=== PATIENT | male | born 1950 | race Hispanic/Latino ===

== ENCOUNTER 2018-07-21 13:27 | Emergency (ER) | payer MEDICARE, MEDICAID ==
[2018-07-21 14:19] VITALS: BP 148/84; PULSE 54; RESP 14; TEMP 97.7; O2SAT 100
[2018-07-21] MEDS ORDERED: Amoxicillin-Clav 875-125 mg Tab PO STA (15:57)
[2018-07-21] MEDS ORDERED: Tdap Vaccine 0.5 ml Vial (10-64 yrs) IM ONE ×2 (15:57→16:36)
--- NOTE | 2018-07-21 16:00 | ED PDOC ---
HPI: Skin/Bite Injury Time Seen by Provider: 07/21/18 14:01 Chief Complaint (Nursing): Bite Chief Complaint (Provider): Bite History Per: Patient History/Exam Limitations: no limitations Onset/Duration Of Symptoms: Hrs (07:30 this morning) Current Symptoms Are (Timing): Still Present Location Of Injury: Right: Hand Additional Complaint(s): Martin Burns is a 68 year old male, with a past medical history of HIV, who presents to the emergency department for evaluation of a bite to his right hand and scratch to his right eyelid onset 07:30 this morning. Patient reports he was bit and scratched by his family's wallace cat. Patient states pain and swelling has worsened since onset. He initially cleaned the wound and used Silvadene ointment. Patient also reports he recently finished antibiotics last week for a surgery. He denies any fever, chills or other medical complaints. PMD: Deandre Graf - Animal Bite Description Of The Animal: Family Pet Animal Appears: Well Animal's Immunization Status: Not Recently Immunized Past Medical History Reviewed: Historical Data, Nursing Documentation, Vital Signs Vital Signs: Last Vital Signs Temp 97.7 F 07/21/18 14:13 Pulse 54 L 07/21/18 14:13 Resp 14 07/21/18 14:13 BP 148/84 07/21/18 14:13 Pulse Ox 100 07/21/18 16:07 - Medical History PMH: HIV - Family History Family History: States: Unknown Family Hx - Home Medications Home Medications: Ambulatory Orders Medication Instructions Recorded Amoxicillin/Clavulanate [Augmentin 1 tab PO BID #14 tab 07/21/18 875 MG-125 MG] Ibuprofen [Motrin] 600 mg PO Q6 #20 tab 07/21/18 - Allergies Allergies/Adverse Reactions: Allergies Allergy/AdvReac Type Severity Reaction Status Date / Time No Known Allergies Allergy Verified 07/21/18 14:13 Review of Systems ROS Statement: Except As Marked, All Systems Reviewed And Found Negative Constitutional: Negative for: Fever, Chills Eyes: Positive for: Eyelid Inflammation (right) Musculoskeletal: Positive for: Hand Pain (right) Physical Exam - Reviewed Nursing Documentation Reviewed: Yes Vital Signs Reviewed: Yes - Physical Exam Appears: Positive for: No Acute Distress Head Exam: Positive for: ATRAUMATIC, NORMAL INSPECTION, NORMOCEPHALIC Skin: Positive for: Normal Color, Warm, Dry Eye Exam: Positive for: Other (Superficial abrasion to right upper eyelid with mild edema) Neck: Positive for: Painless ROM Respiratory: Negative for: Respiratory Distress Extremity: Positive for: Normal ROM (upper and lower extremities), Swelling ( Right hand with puncture wounds over 2nd metacarpal with moderate edema and erythema). Negative for: Deformity Neurologic/Psych: Positive for: Alert, Oriented - Laboratory Results Result Diagrams: 07/21/18 16:23 07/21/18 16:23 - ECG O2 Sat by Pulse Oximetry: 100 (RA) Pulse Ox Interpretation: Normal Medical Decision Making Medical Decision Making: Time: 14:01 Initial Impression: Cat bite Initial Plan: --CMP --CBC w/ differential --Adacel 0.5 ml IM --Augmentin 1 tab PO --Hand right 3 views [RAD] --Reevaluation Scribe Attestation: Documented by Randall Portillo, acting as a scribe for Davida Gupta PA-C Provider Scribe Attestation: All medical record entries made by the Scribe were at my direction and personally dictated by me. I have reviewed the chart and agree that the record accurately reflects my personal performance of the history, physical exam, medical decision making, and the department course for this patient. I have also personally directed, reviewed, and agree with the discharge instructions and disposition. Disposition - Clinical Impression Clinical Impression: Cat bite - Patient ED Disposition Is Patient to be Admitted: No - Disposition Disposition: Routine/Home Disposition Time: 18:10 Condition: STABLE Prescriptions: Amoxicillin/Clavulanate [Augmentin 875 MG-125 MG] 1 tab PO BID #14 tab Ibuprofen [Motrin] 600 mg PO Q6 #20 tab Instructions: Animal and Human Bites Forms: [employer] (Danish)
[2018-07-21 16:29] LABS: BASO % 0.3 % (0.0-2.0); EOS # 0.1 K/uL (0.0-0.7); EOS % 0.8 % (0.0-4.0); HEMOGLOBIN 16.1 g/dL (12.0-18.0); LYMPH # 1.5 K/uL (1.0-4.3); LYMPH % 17.3 % (20.0-40.0); MEAN CELL VOLUME 101.5 fl (80.0-94.0); MEAN CORPUSCULAR HGB CONC 33.5 g/dL (33.0-37.0); MEAN PLATELET VOLUME 8.6 fl (7.2-11.7); MONO # 0.5 K/uL (0.0-0.8); MONO % 6.2 % (0.0-10.0); NEUT # 6.4 K/uL (1.8-7.0); NEUT % 75.4 % (50.0-75.0); RBC 4.73 Mil/uL (4.40-5.90); RED CELL DISTRIBUTION WIDTH 13.8 % (11.5-14.5); WHITE BLOOD COUNT 8.5 K/uL (4.8-10.8)
[2018-07-21] MEDS ORDERED: Amoxicillin-Clav 875-125 mg Tab PO ONE (16:36)
[2018-07-21] MEDS ORDERED: Oxycodone/Acetaminophen 5/325 mg Tab PO STA (16:36)
[2018-07-21 16:43] LABS: ALB/GLOB RATIO 1.6 (1.0-2.1); ALBUMIN 4.7 g/dL (3.5-5.0); ALT/SGPT 33 U/L (21-72); AST/SGOT 30 U/L (17-59); BLOOD UREA NITROGEN 14 mg/dl (9-20); GFR NON-AFRICAN AMERICAN > 60
--- NOTE | 2018-07-21 17:45 | RAD ---
PROCEDURE: Right Hand Radiographs. HISTORY: cat bite COMPARISON: No prior study available for comparison however correlation made with radiographs of the left hand 04/22/2011. FINDINGS: BONES: No evidence of acute displaced fracture nor dislocation. The osseous structures appear intact. No obvious cortical destructive changes. JOINTS: Normal. No osteoarthritic changes. SOFT TISSUES: Soft tissues appear grossly unremarkable without evidence of subcutaneous air foreign body OTHER FINDINGS: None. IMPRESSION: No evidence of acute displaced fracture nor dislocation.
== END 2018-07-21 16:56 | disposition home or self-care (01) ==
LOC: H.ER 13:27
DX: S61.451A Open bite of right hand, initial encounter (principal); W55.01XA Bitten by cat, initial encounter; Z23 Encounter for immunization

== ENCOUNTER 2019-01-11 16:29 | Inpatient (IN) | payer MEDICARE, MEDICAID ==
[2019-01-11] MEDS: Sodium Chloride 0.9% 1,000 ML IV SCH (17:00)
--- NOTE | 2019-01-11 17:13 | CT ---
Date of service: 01/11/2019 PROCEDURE: CT HEAD WITHOUT CONTRAST. HISTORY: code stroke COMPARISON: None available. TECHNIQUE: Axial computed tomography images were obtained through the head/brain without intravenous contrast. Supplemental Coronal and Sagittal projections created and reviewed. Radiation dose: Total exam DLP = not provided. MGy-cm. This CT exam was performed using one or more of the following dose reduction techniques: Automated exposure control, adjustment of the mA and/or kV according to patient size, and/or use of iterative reconstruction technique. FINDINGS: HEMORRHAGE: No intracranial hemorrhage. BRAIN: No mass effect or edema. No atrophy or chronic microvascular ischemic changes. VENTRICLES: Unremarkable. No hydrocephalus. CALVARIUM: Unremarkable. PARANASAL SINUSES: Unremarkable as visualized. No significant inflammatory changes. MASTOID AIR CELLS: Unremarkable as visualized. No inflammatory changes. OTHER FINDINGS: None. IMPRESSION: No acute intracranial abnormalities. No significant findings to account for the clinical presentation. Code stroke protocol: Study completed 16:53. Attempts to reach the referring physician at 17:06 were not successful. Interpretation finalized and available for review 17:09.
--- NOTE | 2019-01-11 17:18 | ED PDOC ---
HPI:STROKE - Time Time: 16:51 - Historian Historian: Patient - Chief Complaint Chief Complaint: Numbness - Onset Date: 01/11/19 Time: 15:30 Onset: This afternoon (x2 hours prior to arrival) - Timing Timing: Persistent - Context Context: Sitting - Location Location: None Locate right:: Face, Upper extremity, Lower extremity - TPA Positive for Contraindication: Yes Reason tPA is not being Administered: Patient declined medication - Notes: Notes:: 68 y/o male with a PMHx of HIV presents to the ED for evaluation of sudden onset of left sided weakness and paresthesias to the face and left arm. Patient repo rts of weakness to the left leg. Patient notes of having generalized weakness over the last few days. Patient reports of similar episodes of unilateral weakness two weeks ago that resolved spontaneously. Patient states he saw PMD four days ago and was given a referral for an MRI for further evaluation. At this time, patient notes of having a little trouble speaking due to numbness to the face. Otherwise, patient denies headache, nausea and blurry vision. PMD: Deandre Graf NIHSS Stroke Scale - Date/Time Evaluation Performed Date Performed: 01/11/19 Time Performed: 17:30 When Was NIHSS Performed: Code Stroke - How Severe is the Stroke Level of Consciousness: 0=Alert LOC to Questions: 0=Both comments correct LOC to commands: 0=Obeys both correctly Best Gaze: 0=Normal Visual: 0=No visual loss Facial: 0=Normal Motor Arm - Left: 0=No drift Motor Arm - Right: 0=No drift Motor Leg - Left: 1=Drift before 5 sec Motor Leg - Right: 0=No drift Limb Ataxia: 0=Absent Sensory: 1=Mild to moderate loss Best Language: 0=No aphasia Dysarthia: 1=Mild to moderate slurring Extinction & Inattention (Neglect): 0=Normal, no object Score: 3 rTPA Inclusion/Exclusion - Refusal of Treatment Patient Refused Treatment: Yes Past Medical History Reviewed: Historical Data, Nursing Documentation, Vital Signs Vital Signs: Last Vital Signs Temp 97.1 F L 01/11/19 16:38 Pulse 68 01/11/19 16:38 Resp 18 01/11/19 16:38 BP 154/91 H 01/11/19 16:38 Pulse Ox 99 01/11/19 16:38 - Medical History PMH: HIV - Surgical History Surgical History: No Surg Hx - Family History Family History: States: Unknown Family Hx - Home Medications Home Medications: Ambulatory Orders Medication Instructions Recorded ALPRAZolam [Xanax] 1 mg PO DAILY PRN 01/11/19 ALPRAZolam [Xanax] 1 mg PO HS 01/11/19 Atorvastatin [Lipitor] 10 mg PO HS 01/11/19 Elviteg/Cob/Emtri/Tenof Alafen 1 tab PO HS 01/11/19 [Genvoya Tablet] Gabapentin 800 mg PO Q12 01/11/19 Levocetirizine Dihydrochloride 5 mg PO DAILY 01/11/19 [Xyzal] QUEtiapine [Seroquel] 25 mg PO HS 01/11/19 - Allergies Allergies/Adverse Reactions: Allergies Allergy/AdvReac Type Severity Reaction Status Date / Time No Known Allergies Allergy Verified 07/21/18 14:13 Review of Systems ROS Statement: Except As Marked, All Systems Reviewed And Found Negative (and as per HPI) Eyes: Negative for: Vision Change Gastrointestinal: Negative for: Nausea Neurological: Positive for: Weakness (left sided weakness), Change in Speech (subtle), Other (paresthesias to the face and leg). Negative for: Headache Physical Exam - Reviewed Nursing Documentation Reviewed: Yes Vital Signs Reviewed: Yes - Physical Exam Appears: Positive for: Well, Non-toxic, Uncomfortable Head Exam: Positive for: ATRAUMATIC, NORMOCEPHALIC Skin: Positive for: Warm, Dry Eye Exam: Positive for: EOMI, PERRL ENT: Negative for: Pharyngeal Erythema, Tonsillar Exudate Neck: Positive for: Painless ROM, Supple Cardiovascular/Chest: Positive for: Regular Rate, Rhythm. Negative for: Murmur Respiratory: Positive for: Normal Breath Sounds. Negative for: Respiratory Distress Gastrointestinal/Abdominal: Positive for: Soft. Negative for: Tenderness Back: Positive for: Normal Inspection. Negative for: Muscle Spasm Extremity: Negative for: Pedal Edema, Deformity Lymphatic: Negative for: Adenopathy Neurologic/Psych: Positive for: Alert, Oriented, Other (4+/5 strength of left lower extremity. Otherwise 5/5 strength in other extremities. Subtle dysarthia). Negative for: Motor/Sensory Deficits, Facial Droop - Laboratory Results Result Diagrams: 01/11/19 17:30 01/11/19 17:10 - ECG O2 Sat by Pulse Oximetry: 99 (RA) Pulse Ox Interpretation: Normal - Critical Care Total Time (In Min): 30 Documented Critical Care: Time excludes all time spent performint seperately billable procedures Medical Decision Making Medical Decision Making: Time: 1647 -- Code Stroke called Overhead Time: 1650 Impression: CVA Plan: -- CT Head w/o Contrast (CODE STROKE) -- EKG -- CMP -- Hemoglobin A1C -- Lipid Panel -- Troponin I -- Stroke Team Consult -- PTT -- Prothrombin time -- CXR Portable -- Activase 10 mg Inj 5 mg IV -- Activase 10 mg Inj 48 mg IV -- Sodium Chloride 0.9% 1000 ML IV 100 mls/hr -- Seed Analyst -- Call Stroke Team Consult PRN -- ED Obtain Labs -- Glucose, Blood, POC -- Neuro Check Q15M -- Nursing Swallow Screen -- Vital Signs Q15M Time: 1700 -- Spoke to Neurologist on-call, Dr. Pollack regarding patient's condition. Dr. Pollack evaluated patient at bedside via TeleStroke Communication video call. As per Dr. Pollack, patient noted to have a NIH score of 1 due to a slight sensation deficit in the left arm. Patient given risks of TPA by Dr. Pollack. Patient declined TPA at this time. ASA and Plavix and CTA ordered as per discussion with Dr Pollack [address] Tony Hospitalist for inpatient stroke workup. Scribe Attestation: Documented by Venkat Lou, acting as a scribe for Davida Godinez MD. Provider Scribe Attestation: All medical record entries made by the Scribe were at my direction and personally dictated by me. I have reviewed the chart and agree that the record accurately reflects my personal performance of the history, physical exam, medical decision making, and the department course for this patient. I have also personally directed, reviewed, and agree with the discharge instructions and disposition. Disposition - Clinical Impression Clinical Impression: Unilateral weakness Counseled Patient/Family Regarding: Studies Performed, Diagnosis - Disposition Disposition Time: 18:00 Condition: FAIR - Pt Status Changed To: Hospital Disposition Of: Observation - POA Present On Arrival: None
[2019-01-11] MEDS ORDERED: Sodium Chloride 0.9% 50 ML IV ONE (17:24)
[2019-01-11] MEDS ORDERED: Iodixanol 320 MG/ML 100 ML BOTTLE IV ONE (17:24)
[2019-01-11 17:32] LABS: BASO % 0.5 % (0.0-2.0); EOS # 0.1 K/uL (0.0-0.7); EOS % 1.7 % (0.0-4.0); LYMPH # 1.5 K/uL (1.0-4.3); LYMPH % 27.6 % (20.0-40.0); MEAN CELL VOLUME 102.1 fl (80.0-94.0); MEAN CORPUSCULAR HEMOGLOBIN 34.2 pg (27.0-31.0); MEAN CORPUSCULAR HGB CONC 33.5 g/dL (33.0-37.0); MONO # 0.5 K/uL (0.0-0.8); MONO % 9.3 % (0.0-10.0); NEUT # 3.3 K/uL (1.8-7.0); NEUT % 60.9 % (50.0-75.0); RBC 4.09 Mil/uL (4.40-5.90); RED CELL DISTRIBUTION WIDTH 14.1 % (11.5-14.5); WHITE BLOOD COUNT 5.5 K/uL (4.8-10.8)
--- NOTE | 2019-01-11 17:53 | PCM.TLSTRK ---
TeleStroke Consultation - Consultation This telehealth visit and patient is being seen on: 01/11/19 The teleneurologist and local physician agreed that telephone exchange of information was sufficient for this consultation and did not require video examination at this time.: No Telehealth services using bi-directional audio/video at [employer] [facility]: [facility] Active/open-ended communication was used to verify the patient's full name, and date of with: Patient - History of Present Illness Chief/Complaint/History of Present of Illness: The patient is a 68 year-old M with a past medical history of HIV and HTN, who developed left side sensory changes and some weakness at around 3:30 PM today. He states that his left side has been feeling strange for about a week now. Last known well date: 01/11/19 Last known well time: 15:30 Patient is a candidate for thrombolytic therapy: Yes - Imaging CT Head: Obtained, Reviewed CT Head show: No acute changes. - tPA The patient &/or family is aware of the benefits & risks of tPA treatment,including a risk of symptomatic ICH & . The patient &/or family is aware of other treatment options including for no treatment: Yes TeleStroke Patient History - Past Family History Pertinent Family History: Problem Relation Age of Onset - Past Social History Smoking Status: Never Smoked - HEMATOLOGICAL/ONCOLOGICAL Hx Human Immunodeficiency Virus (HIV): Yes - PSYCHIATRIC Hx Substance Use: No Meds Allergies/Adverse Reactions: Allergies Allergy/AdvReac Type Severity Reaction Status Date / Time No Known Allergies Allergy Verified 07/21/18 14:13 - Medications Medications: Current Medications Sodium Chloride (Sodium Chloride 0.9%) 1,000 mls @ 100 mls/hr IV .Q10H COUNT INCLUDES THE [facility] Review of Systems - Review of Systems All systems: reviewed and no additional remarkable complaints except NIHSS Stroke Scale - Date/Time Evaluation Performed Date Performed: 01/11/19 Time Performed: 16:55 When Was NIHSS Performed: Baseline - How Severe is the Stroke Level of Consciousness: 0=Alert LOC to Questions: 0=Both comments correct LOC to commands: 0=Obeys both correctly Best Gaze: 0=Normal Visual: 0=No visual loss Facial: 0=Normal Motor Arm - Left: 0=No drift Motor Arm - Right: 0=No drift Motor Leg - Left: 0=No drift Motor Leg - Right: 0=No drift Limb Ataxia: 0=Absent Sensory: 1=Mild to moderate loss Best Language: 0=No aphasia Dysarthia: 0=Normal articulation Extinction & Inattention (Neglect): 0=Normal, no object Score: 1 TeleStroke Exam - General Medical Examination Vital Signs (last 24 hours): Vital Signs - 24 hr 01/11/19 01/11/19 16:38 17:18 Temperature 97.1 F L Pulse Rate 68 Respiratory 18 Rate Blood Pressure 154/91 H O2 Sat by Pulse 99 99 Oximetry Weight in kilograms: 59.323525 - Neurological Examination Mental Status: Positive for: Fully Alert Cranial Nerves: Positive for: Visual cagle were full to confrontation, Version were full without, No dysarthia was appreciated Motor: Positive for: No pronator drift, Power was grossly full throughout Sensory: Positive for: Pin, temperature, vibration, and position sense was full and symmetric, Romberg Coordination: Positive for: No ataxia with finger to nose or heel to mejias testing TeleStroke Plan - Review Patient's current medication list, allergies and medical problems were verified by the following method: Facility medical record, Discussion with the patient/patient representative phlebotomy services I have reviewed all pertinent labs: Yes - Impression Impression: This is a 68-year-old man who presented with left side weakness and sensory changes that improved. His current NIHSS is 1 and he refused IV tPA. - IV-tPA Administration Patient is a candidate for thrombolytic therapy: Yes If not a candidate for thrombolytic,contraindication include: Refused tPA tPA total dose in mg (MAX: 90 mg): [id number] Initiate post-TPA pathway: No Plan: 1. Telemetry, obtain CTA of the head/neck 2. MRI brain without contrast 3. Echocardiogram 4. Load with Plavix 300 mg and aspirin 81 mg. Continue Plavix 75 mg tomorrow and aspirin 81 mg. 5. Fluids with NS at 100 mL/hr 6. Permissive HTN (Only treat BP that is higher than 220/110 mm Hg for the next 24 hours) 7. Check Lipid Panel, HbA1c, B12, folate, TSH, T3/4, and vitamin D levels 9. PT/OT eval and treatment 10. Case management consult. TeleStroke Disposition - Communication Case discussed with: ED Physician - Call Call Start Date: 01/11/19 Phone Call Start Time: 16:50 Call End Date: 01/11/19 - Video Video Start Date: 01/11/19 Video Start Time: 16:55 - Evaluation Total Evaluation Time Spent (minutes): 25
[2019-01-11 17:57] LABS: PARTIAL THROMBOPLASTIN TIME 36.3 Seconds (25.6-37.1)
[2019-01-11 18:03] LABS: ALB/GLOB RATIO 1.4 (1.0-2.1); BLOOD UREA NITROGEN 18 mg/dl (9-20); CALCIUM 10.1 mg/dL (8.4-10.2); GFR NON-AFRICAN AMERICAN > 60; HDL CHOLESTEROL 71 MG/DL (30-70)
[2019-01-11 18:14] LABS: LDL CHOLESTEROL 81 mg/dL (0-129)
[2019-01-11 18:21] LABS: PROTHROMBIN TIME 11.1 Seconds (9.8-13.1)
[2019-01-11 18:23] LABS: ALT/SGPT 40 U/L (21-72); AST/SGOT 56 U/L (17-59)
--- NOTE | 2019-01-11 19:23 | CP.PCM.HP ---
<Jeanette Erickson - Last Filed: 01/11/19 20:18> History of Present Illness - History of Present Illness History of Present Illness: Pt is a 68 y/o male with hx of HIV, HLD, Depression, Generalized Anxiety disorder, LVH, neuropathy, PAD, Anal Squamous Intraepithilial lesions (HSIL) presenting to ED with new onset left sided weakness and numbness/tingling in his left jaw and left upper and lower extremity that started at 3pm. States for the past 3 weeks he has experienced intermittent "dizziness" (denies room spinning, describes as lightheadedness) and not been feeling himself. Also notes he occasionally has felt his left side "giving out" and blurry vision in his left eye as well. He visited his PCP, Dr. Hanna, 4 days ago and was sent to get a Brain MRI w/ and w/o contrast which was scheduled for 01/14. He denies any head trauma, loc, headache, slurred speech, chest pain, sob, or recent illness. PMD: Surjit Hurt HIV (diagnosed 30 years ago, currently on Genvoya and undetectable viral load, CD4 543 [12/08/18], Anal Squamous Intraepithilial lesions (HSIL), Depression, Generalized Anxiety, HLD, Neuropathy (idiopathic) SurgHx: Anal Canal Excision Medication; Alprazolam, Seroquel, LIpitor, Gencoya, Gabapentin, Jess Allergies: Efaverenz-- [employer] symptoms FmHx: Father- heart disease, DM Social Hx: Lives alone, denies ever smoking, drinks alcohol socially, denies illicit drug use including IV injection Present on Admission - Present on Admission Any Indicators Present on Admission: No Past Patient History - Past Social History Smoking Status: Never Smoked - HEMATOLOGICAL/ONCOLOGICAL Hx Human Immunodeficiency Virus (HIV): Yes - PSYCHIATRIC Hx Substance Use: No Meds Allergies/Adverse Reactions: Allergies Allergy/AdvReac Type Severity Reaction Status Date / Time No Known Allergies Allergy Verified 07/21/18 14:13 Physical Exam - Constitutional Appears: Non-toxic, No Acute Distress - Head Exam Head Exam: ATRAUMATIC, NORMAL INSPECTION - Eye Exam Eye Exam: absent: Nystagmus Pupil Exam: PERRL. absent: Miosis - ENT Exam ENT Exam: Mucous Membranes Moist - Neck Exam Neck exam: Positive for: Full Rom - Respiratory Exam Respiratory Exam: Clear to Auscultation Bilateral. absent: Rales, Wheezes - Cardiovascular Exam Cardiovascular Exam: REGULAR RHYTHM, +S1, +S2. absent: Systolic Murmur - GI/Abdominal Exam GI & Abdominal Exam: Normal Bowel Sounds, Soft. absent: Tenderness - Extremities Exam Extremities exam: Positive for: normal capillary refill, normal inspection, pedal pulses present. Negative for: pedal edema - Neurological Exam Neurological exam: Alert, CN II-XII Intact, Motor Sensory Deficit (Left lower extremity strength diminished with pronator drift. Remainder of extremities +5/5 in strength. Nubness noted in dorsum of hand and 2-4th digits.), Oriented x3 - Psychiatric Exam Psychiatric exam: Anxious, Normal Affect - Skin Skin Exam: Normal Color Results - Vital Signs Recent Vital Signs: Last Vital Signs Temp 97.1 F L 01/11/19 16:38 Pulse 68 01/11/19 16:38 Resp 18 01/11/19 16:38 BP 154/91 H 01/11/19 16:38 Pulse Ox 99 01/11/19 19:04 - Labs Result Diagrams: 01/11/19 17:30 01/11/19 17:10 Labs: Laboratory Results - last 24 hr 01/11/19 01/11/19 01/11/19 17:10 17:10 17:30 WBC 5.5 RBC 4.09 L Hgb 14.0 D Hct 41.8 MCV 102.1 H MCH 34.2 H MCHC 33.5 RDW 14.1 Plt Count 151 MPV 9.0 Neut % (Auto) 60.9 Lymph % (Auto) 27.6 Horry % (Auto) 9.3 Eos % (Auto) 1.7 Baso % (Auto) 0.5 Neut # (Auto) 3.3 Lymph # (Auto) 1.5 H[place] # (Auto) 0.5 Eos # (Auto) 0.1 Baso # (Auto) 0.0 PT 11.1 INR 1.0 APTT 36.3 Sodium 139 Potassium 4.6 Chloride 100 Carbon Dioxide 31 H Anion Gap 13 BUN 18 Creatinine 0.9 Est GFR ( Amer) > 60 Est GFR (Non-Af Amer) > 60 Random Glucose 104 Calcium 10.1 Total Bilirubin 0.4 AST 56 ALT 40 Alkaline Phosphatase 64 Troponin I < 0.0120 Total Protein 6.9 Albumin 4.0 Globulin 2.9 Albumin/Globulin Ratio 1.4 Triglycerides 106 Cholesterol 177 LDL Cholesterol Direct 81 HDL Cholesterol 71 H Blood Type Antibody Screen BBK History Checked 01/11/19 17:49 WBC RBC Hgb Hct MCV MCH MCHC RDW Plt Count MPV Neut % (Auto) Lymph % (Auto) H[place] % (Auto) Eos % (Auto) Baso % (Auto) Neut # (Auto) Lymph # (Auto) H[place] # (Auto) Eos # (Auto) Baso # (Auto) PT INR APTT Sodium Potassium Chloride Carbon Dioxide Anion Gap BUN Creatinine Est GFR ( Amer) Est GFR (Non-Af Amer) Random Glucose Calcium Total Bilirubin AST ALT Alkaline Phosphatase Troponin I Total Protein Albumin Globulin Albumin/Globulin Ratio Triglycerides Cholesterol LDL Cholesterol Direct HDL Cholesterol Blood Type O NEGATIVE Antibody Screen Negative BBK History Checked No verified bt Assessment & Plan - Assessment and Plan (Free Text) Assessment: Pt is a 68 y/o male with hx of HIV, HLD, Depression, Generalized Anxiety disorder, LVH, neuropathy, PAD, Anal Squamous Intraepithilial lesions (HSIL) presenting to ED with new onset left sided weakness and numbness/tingling in his left jaw and left upper and lower extremity that started at 3pm. Code Stroke called in ED, neurology consulted, pt declined TPA. ED Course T 97.1, BP 154/91, HR 68, O2 sat 99 on rm air CBC wnl (MCV 102), Coagulation wnl, CMP wnl Troponin x1 negative EKG NSR, no ischemic changes Head CT (stat)- No acute intracranial abnormalities S/P ASA 81 and Plavix 300mg Nurse Swallow Screen Pass #Unilateral weakness, numbness - Strong suspicion for acute CVA - NIHHS 1-2 on exam - Telestroke Consultation (Dr. Pollack) Pt declined TPA, will follow further neurology recommendations - S/P ASA 81 and Plavix 300mg in ED - Will c/w ASA 81 and Plavix 75mg tomorrow - Head & Neck CT Angio - Echo - Brain MRI w/o contrast - NS at 100cc - Permissive HTN - Labs: Lipid panel, Hga1c, Vit B12, TSH,T4, T3, Vit D - Permissive HTN (Only treat BP that is higher than 220/110 mm Hg for the next 24 hours) - Telemetry - PT/OT #HIV - Diagnosed 30 years ago, currently on Genvoya and undetectable viral load, CD4 543 [12/08/18] - C/W Genvoya - Dr. Hanna made aware #HLD - C/W Lipitor - F/U lipid panel #Idiopathic Neuropathy -C/W Gabapentin 800 mg daily #Generalized Anxiety disorder - Mild anxiety noted in ED - Will continue with Xanax 1mg po HS #Depression - Denies active depression, SI/HI - Will c/w Seroquel antony Diet -Cardiac DVT ppx -Lovenox 40SC daily -SCD prn Telemetry Full Code Discussed case with Dr. Chavo Erickson, PGY2 <Nuvia Tony - Last Filed: 01/12/19 10:42> Results - Vital Signs Recent Vital Signs: Last Vital Signs Temp 98.2 F 01/12/19 07:49 Pulse 59 L 01/12/19 07:49 Resp 18 01/12/19 07:49 BP 121/68 01/12/19 07:49 Pulse Ox 97 01/12/19 07:49 - Labs Result Diagrams: 01/11/19 17:30 01/11/19 17:10 Labs: Laboratory Results - last 24 hr 01/11/19 01/11/19 01/11/19 16:50 17:10 17:10 WBC RBC Hgb Hct MCV MCH MCHC RDW Plt Count MPV Neut % (Auto) Lymph % (Auto) [place] % (Auto) Eos % (Auto) Baso % (Auto) Neut # (Auto) Lymph # (Auto) [place] # (Auto) Eos # (Auto) Baso # (Auto) PT 11.1 INR 1.0 APTT 36.3 Sodium 139 Potassium 4.6 Chloride 100 Carbon Dioxide 31 H Anion Gap 13 BUN 18 Creatinine 0.9 Est GFR ( Amer) > 60 Est GFR (Non-Af Amer) > 60 POC Glucose (mg/dL) 118 H Random Glucose 104 Hemoglobin A1c Calcium 10.1 Total Bilirubin 0.4 AST 56 ALT 40 Alkaline Phosphatase 64 Troponin I < 0.0120 Total Protein 6.9 Albumin 4.0 Globulin 2.9 Albumin/Globulin Ratio 1.4 Triglycerides 106 Cholesterol 177 LDL Cholesterol Direct 81 HDL Cholesterol 71 H Vitamin B12 Thyroxine (T4) Total T3 TSH 3rd Generation Blood Type Antibody Screen BBK History Checked 01/11/19 01/11/19 01/11/19 17:19 17:30 17:49 WBC 5.5 RBC 4.09 L Hgb 14.0 D Hct 41.8 MCV 102.1 H MCH 34.2 H MCHC 33.5 RDW 14.1 Plt Count 151 MPV 9.0 Neut % (Auto) 60.9 Lymph % (Auto) 27.6 [place] % (Auto) 9.3 Eos % (Auto) 1.7 Baso % (Auto) 0.5 Neut # (Auto) 3.3 Lymph # (Auto) 1.5 [place] # (Auto) 0.5 Eos # (Auto) 0.1 Baso # (Auto) 0.0 PT INR APTT Sodium Potassium Chloride Carbon Dioxide Anion Gap BUN Creatinine Est GFR ( Amer) Est GFR (Non-Af Amer) POC Glucose (mg/dL) Random Glucose Hemoglobin A1c 5.7 Calcium Total Bilirubin AST ALT Alkaline Phosphatase Troponin I Total Protein Albumin Globulin Albumin/Globulin Ratio Triglycerides Cholesterol LDL Cholesterol Direct HDL Cholesterol Vitamin B12 Thyroxine (T4) Total T3 TSH 3rd Generation Blood Type O NEGATIVE Antibody Screen Negative BBK History Checked No verified bt 01/12/19 04:30 WBC RBC Hgb Hct MCV MCH MCHC RDW Plt Count MPV Neut % (Auto) Lymph % (Auto) [place] % (Auto) Eos % (Auto) Baso % (Auto) Neut # (Auto) Lymph # (Auto) [place] # (Auto) Eos # (Auto) Baso # (Auto) PT INR APTT Sodium Potassium Chloride Carbon Dioxide Anion Gap BUN Creatinine Est GFR ( Amer) Est GFR (Non-Af Amer) POC Glucose (mg/dL) Random Glucose Hemoglobin A1c Calcium Total Bilirubin AST ALT Alkaline Phosphatase Troponin I Total Protein Albumin Globulin Albumin/Globulin Ratio Triglycerides Cholesterol LDL Cholesterol Direct HDL Cholesterol Vitamin B12 441 Thyroxine (T4) 6.41 Total T3 1.02 L TSH 3rd Generation 1.22 Blood Type Antibody Screen BBK History Checked Attending/Attestation - Attestation I have personally seen and examined this patient.: Yes I have fully participated in the care of the patient.: Yes I have reviewed all pertinent clinical information: Yes Notes (Text): 01/12/19 10:42 agree with findings and plan as above
[2019-01-11] MEDS ORDERED: Patient's Own Med (Elviteg/Cob/Emtri/Tenof Alafen [Genvoya Tablet] 1 TAB) PO SCH (22:00)
[2019-01-11 22:33] VITALS: RESP 18
[2019-01-12] MEDS: Sodium Chloride 0.9% 1,000 ML IV SCH (05:59)
[2019-01-12 06:27] LABS: T3 1.02 nmol/L (1.49-2.60)
[2019-01-12] MEDS ORDERED: Enoxaparin 40 mg Syringe SC SCH (09:00)
--- NOTE | 2019-01-12 10:53 | RAD ---
Date of service: 01/11/2019 HISTORY: Code Stroke COMPARISON: Chest radiographs 01/24/2012. FINDINGS: LUNGS: No active pulmonary disease. PLEURA: No significant pleural effusion identified, no pneumothorax apparent. CARDIOVASCULAR: No aortic atherosclerotic calcification present. Normal cardiac size. No pulmonary vascular congestion. OSSEOUS STRUCTURES: No significant abnormalities. VISUALIZED UPPER ABDOMEN: Normal. OTHER FINDINGS: None. IMPRESSION: No interval acute cardiopulmonary disease appreciated.
--- NOTE | 2019-01-12 11:11 | CP.PCM.PN ---
<William Rios - Last Filed: 01/12/19 11:22> Subjective - Date & Time of Evaluation Date of Evaluation: 01/12/19 Time of Evaluation: 10:00 - Subjective Subjective: Pt is a 68 y/o male with hx of HIV, HLD, Depression, Generalized Anxiety disorder, LVH, neuropathy, PAD, Anal Squamous Intraepithilial lesions (HSIL) admitted for left sided weakness, tingling in L UE, LE and face. Patient seen and evaluated at bedside in AM. Patient reports mild improvement in left sided weakness but continues to have facial pain/tingling and LUE tingling. Patient was able to walk to bathroom w/o any difficulty. Patient able to tolerate diet well W/O nausea, vomiting. Continues to have intermittent headache. Denies any dizziness, CP, SOB, worsening vision or any new symptoms. Patient has genvoya at home. Will call his sister to bring medication so Genvoya can be restarted. Objective - Vital Signs/Intake and Output Vital Signs (last 24 hours): Temp Pulse Resp BP Pulse Ox 98.2 F 59 L 18 121/68 97 01/12/19 07:49 01/12/19 07:49 01/12/19 07:49 01/12/19 07:49 01/12/19 07:49 - Medications Medications: Current Medications Acetaminophen (Tylenol 325mg Tab) 650 mg PO Q6 PRN PRN Reason: Pain, Mild (1-3) Alprazolam (Xanax) 1 mg PO HS [facility] Last Admin: 01/11/19 23:04 Dose: 1 mg Aspirin (Ecotrin) 81 mg PO DAILY [facility] Last Admin: 01/12/19 09:29 Dose: 81 mg Atorvastatin Calcium (Lipitor) 10 mg PO HS [facility] Last Admin: 01/11/19 23:02 Dose: 10 mg Clopidogrel Bisulfate (Plavix) 75 mg PO DAILY [facility] Last Admin: 01/12/19 09:30 Dose: 75 mg Enoxaparin Sodium (Lovenox) 40 mg SC DAILY [facility]; Protocol Last Admin: 01/12/19 09:29 Dose: 40 mg Gabapentin (Neurontin) 800 mg PO Q12H [facility] Last Admin: 01/12/19 09:29 Dose: 800 mg Home Med (Elviteg/Cob/Emtri/Tenof Alafen [Genvoya Tablet]) 1 tab PO HS [facility] Sodium Chloride (Sodium Chloride 0.9%) 1,000 mls @ 100 mls/hr IV .Q10H [facility] Last Admin: 01/12/19 05:59 Dose: 100 mls/hr Quetiapine Fumarate (Seroquel) 25 mg PO HS [facility] Last Admin: 01/11/19 23:02 Dose: 25 mg - Labs Labs: 01/11/19 17:30 01/11/19 17:10 PT 11.1 Seconds (9.8-13.1) 01/11/19 17:10 INR 1.0 01/11/19 17:10 APTT 36.3 Seconds (25.6-37.1) 01/11/19 17:10 - Constitutional Appears: Well, No Acute Distress - Head Exam Head Exam: ATRAUMATIC, NORMAL INSPECTION, NORMOCEPHALIC - Eye Exam Eye Exam: EOMI, PERRL. absent: Nystagmus Pupil Exam: absent: Miosis, Mydriatic - ENT Exam ENT Exam: Mucous Membranes Moist - Neck Exam Neck Exam: Full ROM. absent: Tenderness - Respiratory Exam Respiratory Exam: Clear to Ausculation Bilateral, NORMAL BREATHING PATTERN. absent: Rales, Rhonchi, Wheezes, Respiratory Distress - Cardiovascular Exam Cardiovascular Exam: REGULAR RHYTHM, +S1, +S2. absent: Murmur - GI/Abdominal Exam GI & Abdominal Exam: Soft, Normal Bowel Sounds. absent: Distended, Tenderness - Extremities Exam Extremities Exam: absent: Calf Tenderness, Pedal Edema, Tenderness - Neurological Exam Neurological Exam: Alert, Awake, CN II-XII Intact, Normal Gait, Oriented x3 Neuro motor strength exam: Left Upper Extremity: 5, Right Upper Extremity: 5, Left Lower Extremity: 5, Right Lower Extremity: 5 - Psychiatric Exam Psychiatric exam: Normal Affect, Normal Mood - Skin Skin Exam: Dry, Intact, Normal Color, Warm Assessment and Plan - Assessment and Plan (Free Text) Assessment: Pt is a 68 y/o male with hx of HIV, HLD, Depression, Generalized Anxiety disorder, LVH, neuropathy, PAD, Anal Squamous Intraepithilial lesions (HSIL) presenting to ED with new onset left sided weakness and numbness/tingling in his left jaw and left upper and lower extremity that started at 3pm. Code Stroke called in ED, neurology consulted, pt declined TPA. ED Course T 97.1, BP 154/91, HR 68, O2 sat 99 on rm air CBC wnl (MCV 102), Coagulation wnl, CMP wnl Troponin x1 negative EKG NSR, no ischemic changes S/P ASA 81 and Plavix 300mg Nurse Swallow Screen Pass - CTA Head/Neck: No occlusion or significant stenosis appreciated in CT angiography of the head and neck. No arteriovascular malformation or aneurysm identified. [id number] atherosclerosis appreciate the bilateral carotid bulb regions, right greater than left with minimal atherosclerosis identified partially calcified at the bilateral cavernous ICA segments. - CT Head: No acute intracranial abnormalities. No significant findings to account for the clinical presentation. - CXR: unremarkable - Echocardiogram: Awaiting official read Plan: Unilateral weakness, numbness - NIHHS 1-2 on exam - Telestroke Consultation (Dr. Pollack) Pt declined TPA, will follow further neurology recommendations - Head CT, CXR, unremarkable, Head/Neck CTA mild to moderate stenosis, R > L - Permissive HTN(Only treat BP that is higher than 220/110 mm Hg for the next 24 hours) - Continue ASA 81 and Plavix 300mg in ED - Continue NS at 100cc - Lipid panel WNL, Hga1c 5.7, Vit B12 441, TSH 1.22,T4 6.41, T3 1.02 - PT/OT eval adn treatment - F/U Echo report - F/U Brain MRI w/o contrast HIV - Diagnosed 30 years ago, currently on Genvoya and undetectable viral load, CD4 543 [12/08/18] - C/W Genvoya - Dr. Hanna made aware HLD - C/W Lipitor - F/U lipid panel Idiopathic Neuropathy -C/W Gabapentin 800 mg daily Generalized Anxiety disorder - Mild anxiety noted in ED - Will continue with Xanax 1mg po HS Depression - Denies active depression, SI/HI - Will c/w Seroquel antony Diet -Cardiac DVT ppx -Lovenox 40SC daily -SCD prn Telemetry Full Code <Nuvia Tony - Last Filed: 01/13/19 17:39> Objective - Vital Signs/Intake and Output Vital Signs (last 24 hours): Temp Pulse Resp BP Pulse Ox 98.0 F 60 18 144/71 100 01/12/19 16:05 01/12/19 16:05 01/12/19 16:05 01/12/19 16:05 01/12/19 16:05 - Labs Labs: 01/11/19 17:30 01/11/19 17:10 PT 11.1 Seconds (9.8-13.1) 01/11/19 17:10 INR 1.0 01/11/19 17:10 APTT 36.3 Seconds (25.6-37.1) 01/11/19 17:10 Attending/Attestation - Attestation I have personally seen and examined this patient.: Yes I have fully participated in the care of the patient.: Yes I have reviewed all pertinent clinical information, including history, physical exam and plan: Yes Notes (Text): 01/13/19 17:39 Agree with findings and plan as above.
--- NOTE | 2019-01-12 11:15 | CT ---
Date of service: 01/11/2019 PROCEDURE: CT Angiography of the Brain and Neck. HISTORY: LEFT sided weakness COMPARISON: None available. TECHNIQUE: CT angiography of the head and neck was performed following intravenous contrast administration. Coronal and sagittal maximum intensity projection reformatted images were generated. Contrast Dose: Visipaque 320, 90 cc Radiation dose: Total exam DLP = 433.34 mGy-cm. This CT exam was performed using one or more of the following dose reduction techniques: Automated exposure control, adjustment of the mA and/or kV according to patient size, and/or use of iterative reconstruction technique. FINDINGS: INTERNAL CEREBRAL ARTERIES: Note is made of minimally calcified atherosclerosis of the bilateral cavernous internal carotid artery segments without significant stenosis. The skull base, petrous, and supraclinoid segments are bilaterally widely patent. ANTERIOR CEREBRAL ARTERIES: Unremarkable. A1 and A2 segments are widely patent. Smaller distal branches unremarkable, as visualized. MIDDLE CEREBRAL ARTERIES: Unremarkable. M1 and M2 segments are widely patent. Perisylvian branches grossly symmetric. POSTERIOR CIRCULATION: Basilar Artery: Unremarkable. Distal Vertebral Arteries: Left dominant vertebrobasilar circulation is identified due to mild to moderate hypoplasia of the distal right vertebral artery. Posterior Cerebral Arteries: Unremarkable. Posterior Inferior Cerebellar Arteries: Unremarkable. NECK CTA: Common Carotid arteries: The bilateral common carotid appear widely patent from their origins to their bifurcations with no significant stenosis appreciated. No evidence to suggest common carotid artery dissection. Atherosclerotic plaques identified at the right greater than left carotid bulb regions on a [id number] basis bilaterally Internal Carotid arteries: No significant stenosis is appreciated throughout the cervical internal carotid artery segments bilaterally and there is no evidence of dissection either. External Carotid arteries: Appear unremarkable bilaterally. Vertebral arteries: The bilateral vertebral arteries appear normal in caliber from their origins to their distal cervical segments. No significant stenosis or definite pattern of dissection. ANEURYSM/ VASCULAR MALFORMATIONS: None. OTHER FINDINGS: Multilevel degenerative cervical spondylosis. IMPRESSION: No occlusion or significant stenosis appreciated in CT angiography of the head and neck. No arteriovascular malformation or aneurysm identified. [id number] atherosclerosis appreciate the bilateral carotid bulb regions, right greater than left with minimal atherosclerosis identified partially calcified at the bilateral cavernous ICA segments. Concordant preliminary report from [facility], 12/22/2018, 7:52 p.m..
--- NOTE | 2019-01-12 13:38 | MRI ---
Date of service: 01/12/2019 PROCEDURE: MRI BRAIN WITHOUT CONTRAST HISTORY: check for CVA COMPARISON: None available. TECHNIQUE: Multiplanar, multisequence MR images of the brain were obtained without intravenous contrast enhancement. FINDINGS: HEMORRHAGE: None DWI: No evidence of an acute or early subacute infarction. BRAIN PARENCHYMA: Good corticomedullary differentiation is seen. Proportional,, limited diffuse expansion of the ventriculosulcal and cisternal spaces is appreciated with limited white matter signal changes compatible with diffuse cerebral atrophy and chronic microangiopathy. No suspicious extra-axial fluid collection is identified and the midline brain anatomy appears grossly nonfocal as imaged. There is no mass effect throughout. VENTRICLES: Unremarkable. No hydrocephalus. CRANIUM: Unremarkable. Note is made of a left parietal scalp sebaceous cyst. ORBITS: Grossly unremarkable. PARANASAL SINUSES/MASTOIDS: Limited mucosal plantar changes scattered throughout the ethmoid air cells bilaterally. VASCULAR SYSTEM: Skull base flow voids intact. OTHER FINDINGS: None. IMPRESSION: Limited age-related neuro degenerative changes are identified primarily affecting the cerebrum. No definitive acute separate brain infarction or mass effect.
--- NOTE | 2019-01-12 15:38 | CP.PCM.PN ---
Subjective - Date & Time of Evaluation Date of Evaluation: 01/12/19 Time of Evaluation: 15:36 - Subjective Subjective: Neuro Follow-Up Note: Mr. Burns was evaluated this afternoon at bedside. He states that he is feeling good and is eager to go home. He states that his symptoms from yesterday have resolved. Admits to on and off numbness/tingling to left leg and hand but none now. He does have peripheral neuropathy which is usually well controlled with Gabapentin. He admits that his symptoms of left sided weakness, paresthesias, confusion, lightheadedness, and diaphoresis have been on and off for 3 weeks. He admits to the recent loss of his partner (13-14 months ago) and states that he gets very emotional and upset when he thinks about him. He also admits that the last episode of left sided weakness and paresthesias were associated with 2 jerky movement of his left arm and left leg. No tongue biting, LOC, urinary/bowel incontinence during this episode. He denies any h/o seizures. Currently denies h/a, dizziness, visual changes, chest pain, sob, cough, abd pain, n/v/d. Objective - Vital Signs/Intake and Output Vital Signs (last 24 hours): Temp Pulse Resp BP Pulse Ox 98.3 F 64 18 142/79 98 01/12/19 12:00 01/12/19 12:00 01/12/19 12:00 01/12/19 12:00 01/12/19 12:00 - Medications Medications: Current Medications Acetaminophen (Tylenol 325mg Tab) 650 mg PO Q6 PRN PRN Reason: Pain, Mild (1-3) Alprazolam (Xanax) 1 mg PO [facility] Last Admin: 01/11/19 23:04 Dose: 1 mg Aspirin (Ecotrin) 81 mg PO DAILY [facility] Last Admin: 01/12/19 09:29 Dose: 81 mg Atorvastatin Calcium (Lipitor) 10 mg PO [facility] Last Admin: 01/11/19 23:02 Dose: 10 mg Clopidogrel Bisulfate (Plavix) 75 mg PO DAILY [facility] Last Admin: 01/12/19 09:30 Dose: 75 mg Enoxaparin Sodium (Lovenox) 40 mg SC DAILY [facility]; Protocol Last Admin: 01/12/19 09:29 Dose: 40 mg Gabapentin (Neurontin) 800 mg PO Q12H [facility] Last Admin: 01/12/19 09:29 Dose: 800 mg Home Med (Elviteg/Cob/Emtri/Tenof Alafen [Genvoya Tablet]) 1 tab PO [facility] Sodium Chloride (Sodium Chloride 0.9%) 1,000 mls @ 100 mls/hr IV .Q10H [facility] Last Admin: 01/12/19 05:59 Dose: 100 mls/hr Quetiapine Fumarate (Seroquel) 25 mg PO [facility] Last Admin: 01/11/19 23:02 Dose: 25 mg - Labs Labs: 01/11/19 17:30 01/11/19 17:10 PT 11.1 Seconds (9.8-13.1) 01/11/19 17:10 INR 1.0 01/11/19 17:10 APTT 36.3 Seconds (25.6-37.1) 01/11/19 17:10 - Constitutional Appears: Well, Non-toxic, No Acute Distress - Head Exam Head Exam: ATRAUMATIC, NORMAL INSPECTION, NORMOCEPHALIC - Eye Exam Eye Exam: EOMI, Normal appearance, PERRL Pupil Exam: NORMAL ACCOMODATION, PERRL - ENT Exam ENT Exam: Mucous Membranes Moist - Neck Exam Neck Exam: Full ROM, Normal Inspection - Respiratory Exam Respiratory Exam: NORMAL BREATHING PATTERN - Extremities Exam Extremities Exam: Full ROM, Normal Inspection. absent: Calf Tenderness, Pedal Edema - Back Exam Back Exam: Full ROM - Neurological Exam Neurological Exam: Alert, Awake, CN II-XII Intact, Normal Gait, Oriented x3, Reflexes Normal Neuro motor strength exam: Left Upper Extremity: 5 (legal advisor 5/5), Right Upper Extremity: 5 (legal advisor 5/5), Left Lower Extremity: 5 (plantar flexion 5/5), Right Lower Extremity: 5 (plantar flexion 5/5) Additional comments: Speech clear, fluid Follows all commands No facial asymmetry. Strength equal to all extremities. + FROM Sensation intact b/l. No ataxia; no dysmetria. No jerky or abnormal movements noted. Gait observed as steady during PT. - Psychiatric Exam Psychiatric exam: Normal Affect, Normal Mood - Skin Skin Exam: Normal Color Assessment and Plan (1) Unilateral weakness Assessment & Plan: Imaging reviewed: -MRI Brain (01/11/19): Limited age-related neuro degenerative changes are identified primarily affecting the cerebrum. No definitive acute separate brain infarction or mass effect. -CTA Head and Neck (01/11/19): No occlusion or significant stenosis appreciated in CT angiography of the head and neck. No arteriovascular malformation or aneurysm identified. [id number] atherosclerosis appreciate the bilateral carotid bulb regions, right greater than left with minimal atherosclerosis identified partially calcified at the bilateral cavernous ICA segments. -CT Head (01/11/19): No acute intracranial abnormalities. No significant findings to account for the clinical presentation. -Pt is neurologically stable for d/c home. -He has an appt to f/u with his PMD, [place], next week. -It is recommended that he have an EEG as outpatient to r/o seizure. Does not have to be done inpatient. -He can have an outpatient cardiology consult, which he will speak to PMD about next week. F/u with ECHO results. -May benefit from support group as he is currently grieving the loss of his partner. His symptoms may likely be related to stress/anxiety reactions. Please reconsult prn. Thank you for allowing us to participate in this pt's care. Lisa Woods DNP, [employer] Discussed with Dr. Pollack Status: Acute NIHSS Stroke Scale - Date/Time Evaluation Performed Date Performed: 01/12/19 Time Performed: 15:36 When Was NIHSS Performed: Re-evaluation - How Severe is the Stroke Level of Consciousness: 0=Alert LOC to Questions: 0=Both comments correct LOC to commands: 0=Obeys both correctly Best Gaze: 0=Normal Visual: 0=No visual loss Facial: 0=Normal Motor Arm - Left: 0=No drift Motor Arm - Right: 0=No drift Motor Leg - Left: 0=No drift Motor Leg - Right: 0=No drift Limb Ataxia: 0=Absent Sensory: 0=Normal Best Language: 0=No aphasia Dysarthia: 0=Normal articulation Extinction & Inattention (Neglect): 0=Normal, no object Score: 0
[2019-01-12 16:06] VITALS: BP 144/71; PULSE 60; TEMP 98; O2SAT 100
--- NOTE | 2019-01-12 16:22 | CP.PCM.DIS ---
<William Rios - Last Filed: 01/12/19 16:31> Provider - Provider Date of Admission: 01/11/19 17:14 Attending physician: Nuvia Tony DO Consults: 01/11/19 16:51 Stroke Team Consult Stat Comment: Consulting Provider: Neurohospitalist Consulting Physician: NEUROHOSP Neurohospitalist for Consult: Raheem Pollack Neurohospitalist for Consult: Danica Gallardo Reason for Consult: LEFT sided weakness Time Spent in preparation of Discharge (in minutes): 30 Hospital Course - Lab Results Lab Results: Most Recent Lab Values WBC 5.5 K/uL (4.8-10.8) 01/11/19 17:30 RBC 4.09 Mil/uL (4.40-5.90) L 01/11/19 17:30 Hgb 14.0 g/dL (12.0-18.0) D 01/11/19 17:30 Hct 41.8 % (35.0-51.0) 01/11/19 17:30 MCV 102.1 fl (80.0-94.0) H 01/11/19 17:30 MCH 34.2 pg (27.0-31.0) H 01/11/19 17:30 MCHC 33.5 g/dL (33.0-37.0) 01/11/19 17:30 RDW 14.1 % (11.5-14.5) 01/11/19 17:30 Plt Count 151 K/uL (130-400) 01/11/19 17:30 MPV 9.0 fl (7.2-11.7) 01/11/19 17:30 Neut % (Auto) 60.9 % (50.0-75.0) 01/11/19 17:30 Lymph % (Auto) 27.6 % (20.0-40.0) 01/11/19 17:30 [place] % (Auto) 9.3 % (0.0-10.0) 01/11/19 17:30 Eos % (Auto) 1.7 % (0.0-4.0) 01/11/19 17:30 Baso % (Auto) 0.5 % (0.0-2.0) 01/11/19 17:30 Neut # (Auto) 3.3 K/uL (1.8-7.0) 01/11/19 17:30 Lymph # (Auto) 1.5 K/uL (1.0-4.3) 01/11/19 17:30 [place] # (Auto) 0.5 K/uL (0.0-0.8) 01/11/19 17:30 Eos # (Auto) 0.1 K/uL (0.0-0.7) 01/11/19 17:30 Baso # (Auto) 0.0 K/uL (0.0-0.2) 01/11/19 17:30 PT 11.1 Seconds (9.8-13.1) 01/11/19 17:10 INR 1.0 01/11/19 17:10 APTT 36.3 Seconds (25.6-37.1) 01/11/19 17:10 Sodium 139 mmol/l (132-148) 01/11/19 17:10 Potassium 4.6 MMOL/L (3.6-5.0) 01/11/19 17:10 Chloride 100 mmol/L (98-107) 01/11/19 17:10 Carbon Dioxide 31 mmol/L (22-30) H 01/11/19 17:10 Anion Gap 13 (10-20) 01/11/19 17:10 BUN 18 mg/dl (9-20) 01/11/19 17:10 Creatinine 0.9 mg/dl (0.8-1.5) 01/11/19 17:10 Est GFR ( Amer) > 60 01/11/19 17:10 Est GFR (Non-Af Amer) > 60 01/11/19 17:10 POC Glucose (mg/dL) 118 mg/dL (65-110) H 01/11/19 16:50 Random Glucose 104 mg/dL (75-110) 01/11/19 17:10 Hemoglobin A1c 5.7 % (4.2-6.5) 01/11/19 17:19 Calcium 10.1 mg/dL (8.4-10.2) 01/11/19 17:10 Total Bilirubin 0.4 mg/dl (0.2-1.3) 01/11/19 17:10 AST 56 U/L (17-59) 01/11/19 17:10 ALT 40 U/L (21-72) 01/11/19 17:10 Alkaline Phosphatase 64 U/L (38-126) 01/11/19 17:10 Troponin I < 0.0120 ng/mL (0.00-0.120) 01/11/19 17:10 Total Protein 6.9 G/DL (6.3-8.2) 01/11/19 17:10 Albumin 4.0 g/dL (3.5-5.0) 01/11/19 17:10 Globulin 2.9 gm/dL (2.2-3.9) 01/11/19 17:10 Albumin/Globulin Ratio 1.4 (1.0-2.1) 01/11/19 17:10 Triglycerides 106 mg/DL (0-149) 01/11/19 17:10 Cholesterol 177 mg/dL (0-199) 01/11/19 17:10 LDL Cholesterol Direct 81 mg/dL (0-129) 01/11/19 17:10 HDL Cholesterol 71 MG/DL (30-70) H 01/11/19 17:10 Vitamin B12 441 pg/mL (239-931) 01/12/19 04:30 25-OH Vitamin D Total 20.2 NG/ML (30.0-100.0) L 01/12/19 04:30 Thyroxine (T4) 6.41 ug/dl (5.5-11.0) 01/12/19 04:30 Total T3 1.02 nmol/L (1.49-2.60) L 01/12/19 04:30 TSH 3rd Generation 1.22 mIU/ML (0.46-4.68) 01/12/19 04:30 Blood Type O NEGATIVE 01/11/19 17:49 Blood Type Confirm O NEGATIVE 01/12/19 11:04 Antibody Screen Negative 01/11/19 17:49 BBK History Checked No verified bt 01/11/19 17:49 - Hospital Course Hospital Course: 68 y/o male with hx of HIV, HLD, Depression, Generalized Anxiety disorder, LVH, neuropathy, PAD, Anal Squamous Intraepithilial lesions (HSIL) presenting to ED with new onset left sided weakness and numbness/tingling in his left jaw and left upper and lower extremity that started at 3pm. Code Stroke called in ED, neurology consulted, pt declined TPA. In ED: T 97.1, BP 154/91, HR 68, O2 sat 99 on rm air. CBC wnl (MCV 102), Coagulation wnl, CMP wnl, Troponin x1 negative, EKG NSR, no ischemic changes S/P ASA 81 and Plavix 300mg. CTA Head/Neck: No occlusion or significant stenosis appreciated in CT angiography of the head and neck. CT Head: No acute intracranial abnormalities. No significant findings to account for the clinical presentation, CXR: unremarkable, Echocardiogram: EF 55-60%. MRI Brain with no acute neurological changes. Patient received home medications, ASA, plavix. Patient cleared by neurologist to D/C home and F/U with Dr. Salinas in 1 week. Neurologist also recommended EEG as outpatient to r/o seizure. He can have an outpatient cardiology consult, which he will speak to PMD about next week. F/u with ECHO results. Discharge medications ASA 81 mg po daily Atorcastatin 10 mg po daily Genvoya 1 tab PO daily Seroquel 25 mg PO HS Gabapentin 800 mg PO B12 Xyzal 5 mg PO daily Xanax 1 mg PO daily PRN Xanax 1 mg PO HS Discharge Exam - Head Exam Head Exam: ATRAUMATIC, NORMAL INSPECTION, NORMOCEPHALIC - Eye Exam Eye Exam: EOMI, Normal appearance - ENT Exam ENT Exam: Mucous Membranes Moist - Neck Exam Neck exam: Full Rom - Respiratory Exam Respiratory Exam: Clear to PA & Lateral, UNREMARKABLE. absent: Rales, Rhonchi, Wheezes, Respiratory Distress - Cardiovascular Exam Cardiovascular Exam: REGULAR RHYTHM, +S1, +S2. absent: Systolic Murmur - GI/Abdominal Exam GI & Abdominal Exam: Normal Bowel Sounds, Unremarkable. absent: Soft, Tenderness - Back Exam Back exam: absent: CVA tenderness (L) - Neurological Exam Neurological exam: Alert, CN II-XII Intact, Normal Gait, Oriented x3 - Psychiatric Exam Psychiatric exam: Normal Affect, Normal Mood - Skin Skin Exam: Dry, Intact, Normal Color, Warm Discharge Plan - Discharge Medications Prescriptions: Aspirin [Ecotrin] 81 mg PO DAILY #30 tabec - Follow Up Plan Condition: STABLE Disposition: HOME/ ROUTINE Patient education suggested?: Yes Instructions: Paresthesias (DC), Hand Numbness Additional Instructions: Follow up with Dr. Salinas on outpatient basis within 1 week Referrals: Deandre Graf MD [Family Provider] - <Nuvia Tony - Last Filed: 01/13/19 17:37> Provider - Provider Date of Admission: 01/11/19 17:14 Attending physician: Nuvia Tony DO Consults: 01/11/19 16:51 Stroke Team Consult Stat Comment: Consulting Provider: Neurohospitalist Consulting Physician: NEUROHOSP Neurohospitalist for Consult: Raheem Pollack Neurohospitalist for Consult: Danica Gallardo Reason for Consult: LEFT sided weakness Hospital Course - Lab Results Lab Results: Most Recent Lab Values WBC 5.5 K/uL (4.8-10.8) 01/11/19 17:30 RBC 4.09 Mil/uL (4.40-5.90) L 01/11/19 17:30 Hgb 14.0 g/dL (12.0-18.0) D 01/11/19 17:30 Hct 41.8 % (35.0-51.0) 01/11/19 17:30 MCV 102.1 fl (80.0-94.0) H 01/11/19 17:30 MCH 34.2 pg (27.0-31.0) H 01/11/19 17:30 MCHC 33.5 g/dL (33.0-37.0) 01/11/19 17:30 RDW 14.1 % (11.5-14.5) 01/11/19 17:30 Plt Count 151 K/uL (130-400) 01/11/19 17:30 MPV 9.0 fl (7.2-11.7) 01/11/19 17:30 Neut % (Auto) 60.9 % (50.0-75.0) 01/11/19 17:30 Lymph % (Auto) 27.6 % (20.0-40.0) 01/11/19 17:30 [place] % (Auto) 9.3 % (0.0-10.0) 01/11/19 17:30 Eos % (Auto) 1.7 % (0.0-4.0) 01/11/19 17:30 Baso % (Auto) 0.5 % (0.0-2.0) 01/11/19 17:30 Neut # (Auto) 3.3 K/uL (1.8-7.0) 01/11/19 17:30 Lymph # (Auto) 1.5 K/uL (1.0-4.3) 01/11/19 17:30 [place] # (Auto) 0.5 K/uL (0.0-0.8) 01/11/19 17:30 Eos # (Auto) 0.1 K/uL (0.0-0.7) 01/11/19 17:30 Baso # (Auto) 0.0 K/uL (0.0-0.2) 01/11/19 17:30 PT 11.1 Seconds (9.8-13.1) 01/11/19 17:10 INR 1.0 01/11/19 17:10 APTT 36.3 Seconds (25.6-37.1) 01/11/19 17:10 Sodium 139 mmol/l (132-148) 01/11/19 17:10 Potassium 4.6 MMOL/L (3.6-5.0) 01/11/19 17:10 Chloride 100 mmol/L (98-107) 01/11/19 17:10 Carbon Dioxide 31 mmol/L (22-30) H 01/11/19 17:10 Anion Gap 13 (10-20) 01/11/19 17:10 BUN 18 mg/dl (9-20) 01/11/19 17:10 Creatinine 0.9 mg/dl (0.8-1.5) 01/11/19 17:10 Est GFR ( Amer) > 60 01/11/19 17:10 Est GFR (Non-Af Amer) > 60 01/11/19 17:10 POC Glucose (mg/dL) 118 mg/dL (65-110) H 01/11/19 16:50 Random Glucose 104 mg/dL (75-110) 01/11/19 17:10 Hemoglobin A1c 5.7 % (4.2-6.5) 01/11/19 17:19 Calcium 10.1 mg/dL (8.4-10.2) 01/11/19 17:10 Total Bilirubin 0.4 mg/dl (0.2-1.3) 01/11/19 17:10 AST 56 U/L (17-59) 01/11/19 17:10 ALT 40 U/L (21-72) 01/11/19 17:10 Alkaline Phosphatase 64 U/L (38-126) 01/11/19 17:10 Troponin I < 0.0120 ng/mL (0.00-0.120) 01/11/19 17:10 Total Protein 6.9 G/DL (6.3-8.2) 01/11/19 17:10 Albumin 4.0 g/dL (3.5-5.0) 01/11/19 17:10 Globulin 2.9 gm/dL (2.2-3.9) 01/11/19 17:10 Albumin/Globulin Ratio 1.4 (1.0-2.1) 01/11/19 17:10 Triglycerides 106 mg/DL (0-149) 01/11/19 17:10 Cholesterol 177 mg/dL (0-199) 01/11/19 17:10 LDL Cholesterol Direct 81 mg/dL (0-129) 01/11/19 17:10 HDL Cholesterol 71 MG/DL (30-70) H 01/11/19 17:10 Vitamin B12 441 pg/mL (239-931) 01/12/19 04:30 25-OH Vitamin D Total 20.2 NG/ML (30.0-100.0) L 01/12/19 04:30 Thyroxine (T4) 6.41 ug/dl (5.5-11.0) 01/12/19 04:30 Total T3 1.02 nmol/L (1.49-2.60) L 01/12/19 04:30 TSH 3rd Generation 1.22 mIU/ML (0.46-4.68) 01/12/19 04:30 Blood Type O NEGATIVE 01/11/19 17:49 Blood Type Confirm O NEGATIVE 01/12/19 11:04 Antibody Screen Negative 01/11/19 17:49 BBK History Checked No verified bt 01/11/19 17:49 Attending/Attestation - Attestation I have personally seen and examined this patient.: Yes I have fully participated in the care of the patient.: Yes I have reviewed all pertinent clinical information, including history, physical exam and plan: Yes Notes (Text): 01/13/19 17:37 Agree with findings and plan as above.
--- NOTE | 2019-01-12 21:01 | CARD ---
APPROVED REPORT Date of service: 01/12/2019 EXAM: Two-dimensional and M-mode echocardiogram with Doppler and color Doppler. Other Information Quality : GoodRhythm : NSR INDICATION CVA/TIA 2D DIMENSIONS IVSd1.20 (0.7-1.1cm)LVDd4.11 (3.9-5.9cm) LVOT Diameter1.99 (1.8-2.4cm)PWd1.07 (0.7-1.1cm) IVSs1.58 (0.8-1.2cm)LVDs2.28 (2.5-4.0cm) FS (%) 44.6 %PWs1.25 (0.8-1.2cm) M-Mode DIMENSIONS Left Atrium (MM)3.81 (2.5-4.0cm)IVSd1.16 (0.7-1.1cm) Aortic Root3.53 (2.2-3.7cm)LVDd4.45 (4.0-5.6cm) Aortic Cusp Exc.2.19 (1.5-2.0cm)PWd1.08 (0.7-1.1cm) IVSs1.80 cmFS (%) 51 % LVDs2.19 (2.0-3.8cm)PWs1.52 cm Aortic Valve AoV Peak Bvyfbqse198.6cm/sAoV VTI27.1cmAO Peak GR.6mmHg LVOT Peak Lggakggw632.3cm/sLVOT VTI23.17cmAO Mean GR.3mmHg KAROLINE (VMAX)1.09ud8AAC (VTI)1.57cm2 Mitral Valve MV E Ztgzcrop04.7cm/sMV DECEL [id number] A Cymjcnud61.8cm/s MV BDO53ocE/A ratio0.9MVA (PHT)3.59cm2 TDI Lateral E' Peak V9.04cm/sMedial E' Peak V9.45cm/sE/Lateral E'6.4 E/Medial E'6.1 LEFT VENTRICLE The left ventricle is normal size. There is normal left ventricular wall thickness. The left ventricular systolic function is normal. The estimated ejection fraction is 55-60% No regional wall motion abnormalities noted.. Transmitral Doppler flow pattern is Grade I-abnormal relaxation pattern. No left ventricle thrombus noted on this study. There is no ventricular septal defect visualized. There is no left ventricular aneurysm. There is no mass noted in the left ventricle. RIGHT VENTRICLE The right ventricle is normal size. There is normal right ventricular wall thickness. The right ventricular systolic function is normal. ATRIA The left atrium size is normal. The right atrium size is normal. The interatrial septum is intact with no evidence for an atrial septal defect. AORTIC VALVE The aortic valve is normal in structure. No aortic regurgitation is present. There is no aortic valvular stenosis. There is no aortic valvular vegetation. MITRAL VALVE The mitral valve is normal in structure. There is no evidence of mitral valve prolapse. There is no mitral valve stenosis. There is mild mitral valve regurgitation noted. TRICUSPID VALVE The tricuspid valve is normal in structure. There is mild tricuspid valve regurgitation noted. RVSP is calculated at 20 mm Hg. There is no tricuspid valve prolapse or vegetation. There is no tricuspid valve stenosis. PULMONIC VALVE The pulmonary valve is normal in structure. There is no pulmonic valvular regurgitation. There is no pulmonic valvular stenosis. GREAT VESSELS The aortic root is normal in size. The ascending aorta is normal in size. The pulmonary artery is normal. The IVC is normal in size and collapses >50% with inspiration. PERICARDIAL EFFUSION There is no pericardial effusion. There is no pleural effusion. <Conclusion> The estimated ejection fraction is 55-60% Transmitral Doppler flow pattern is Grade I-abnormal relaxation pattern. There is mild mitral valve regurgitation noted. There is mild tricuspid valve regurgitation noted. RVSP is calculated at 20 mm Hg. The interatrial septum is intact with no evidence for an atrial septal defect.
--- NOTE | 2019-01-13 13:05 | PQF ---
PROVIDER RESPONSE TEXT: Patient is asymptomatic HIV REVIEWER QUERY TEXT: HIV Clarification and Associated Conditions HIV (Human immunodeficiency virus) is documented in the medical record. Please specify the type Such as: -- Symptomatic -- Asymptomatic -- Other, please specify 01/12 [facility] Resident note includes:HIV - Diagnosed 30 years ago, currently on Genvoya and undetectab le viral load, CD4 543 [12/08/18] - C/W Genvoya - Dr. Hanna made aware The patient's Clinical Indicators include: --- Query created by: Lisy Shelton on 01/12/2019 1:55 PM Electronically signed by: William Rios 01/13/2019 1:02 PM
--- NOTE | 2019-01-13 15:58 | PQF ---
PROVIDER RESPONSE TEXT: In agreement with Neurologist, Symptoms likely related to stress or anxiety Head CT and MRI brain Negative for acute stroke. 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 D/C Summary includes: presenting to ED with new onset left sided weakness and numbness/tingling in hi s left jaw and left upper and lower extremity that started at 3pm.Code Stroke called in ED, neurology consulted, pt declined TPA.----- EEG as outpatient to r/o seizure.He can have an outpatient cardiolo gy consult, which he will speak to PMD about next week.F/u with ECHO results The patient's Clinical Indicators include: -- Query created by: Lisy Shelton on 01/13/2019 3:42 PM Electronically signed by: William Rios 01/13/2019 3:55 PM
== END 2019-01-12 17:40 | disposition home or self-care (01) | DRG 93 ==
LOC: H.ER 16:29 → H.ERHOLD 17:14 → H.TEL 21:58
PROVIDERS: ADMIT Student in an Organized Health Care Education/Training Program; ATTEND Student in an Organized Health Care Education/Training Program
DX: R20.2 Paresthesia of skin (principal); R53.1 Weakness; F41.1 Generalized anxiety disorder; G60.9 Hereditary and idiopathic neuropathy, unspecified; Z21 Asymptomatic human immunodeficiency virus [HIV] infection status; E78.5 Hyperlipidemia, unspecified; I73.9 Peripheral vascular disease, unspecified; F32.9 Major depressive disorder, single episode, unspecified; Z87.2 Personal history of diseases of the skin and subcutaneous tissue